=== PATIENT | female | born 1955 | race Two or more races ===

== ENCOUNTER 2020-10-20 07:18 | Day surgery (SDC) | payer OTHER | END 2020-10-20 13:50 | disposition home or self-care (01) | LOC: AMB-ENDOS 07:18 | PROVIDERS: ATTEND Colon & Rectal Surgery | DX: K57.32 Diverticulitis of large intestine without perforation or abscess without bleeding (principal); K64.1 Second degree hemorrhoids; Z20.822 Contact with and (suspected) exposure to COVID-19 ==

== ENCOUNTER 2020-11-21 10:45 | Inpatient (IN) | payer OTHER ==
[~2020-11-21] VITALS: Ht 157.5 cm; Wt 108.9 kg
[2020-11-21] MEDS ORDERED: PRILOSEC OTC20 MG PO (12:29)
[2020-11-21] MEDS ORDERED: TENORMIN25 MG PO (12:29)
[2020-11-21] MEDS ORDERED: PROZAC40 MG PO (12:29)
[2020-11-21] MEDS ORDERED: ADULT LOW DOSE81 M1 PO (12:29)
[2020-11-21] MEDS ORDERED: PEPCID AC20 MG PO (12:30)
[2020-11-21] MEDS ORDERED: SENNA8.8 MG/5 M PO (12:31)
[2020-11-21] MEDS ORDERED: MONTELUKAST SOD10 MG PO (12:31)
[2020-11-21] MEDS ORDERED: MILLIPRED DP5 MG PO (12:32)
[2020-11-21] MEDS ORDERED: ADVAIR 100-501 EACH IH (12:32)
[2020-11-21] MEDS ORDERED: FLONASE16 GM (12:33)
[2020-11-21] MEDS ORDERED: CLONAZEPAM0.5 MG PO (12:34)
[2020-11-21] MEDS ORDERED: RESTORIL22.5 MG PO (12:34)
[2020-12-15] MEDS ORDERED: POLY119PG PO (17:06)
[2020-12-15] MEDS ORDERED: TRAMADOL HCL50 MG PO (17:06)
== END 2020-12-15 20:11 | disposition home or self-care (01) | DRG 329 ==
LOC: SURH 11-28 10:45 → O/R 11-29 06:58 → SURH 11-29 19:49
PROVIDERS: ADMIT Colon & Rectal Surgery; ATTEND Colon & Rectal Surgery
PROC: 0DBP0ZZ Excision of Rectum, Open Approach (ICD-10-PCS; 2020-11-29)
PROC: 0DNW0ZZ Release Peritoneum, Open Approach (ICD-10-PCS; 2020-11-29)
PROC: 0DB80ZZ Excision of Small Intestine, Open Approach (ICD-10-PCS; principal; 2020-11-29 10:00)
PROC: 02HV33Z Insertion of Infusion Device into Superior Vena Cava, Percutaneous Approach (ICD-10-PCS; 2020-12-03)
DX: Z43.3 Encounter for attention to colostomy (principal); J18.9 Pneumonia, unspecified organism; J45.901 Unspecified asthma with (acute) exacerbation; K57.30 Diverticulosis of large intestine without perforation or abscess without bleeding; K66.0 Peritoneal adhesions (postprocedural) (postinfection)
CPT/HCPCS: 71275

== ENCOUNTER 2022-05-16 06:50 | Outpatient (CLI) | payer OTHER ==
[~2022-05-16 06:50] MED LIST: ADULT LOW DOSE81 M1 PO; ADVAIR 100-501 EACH IH; CLONAZEPAM0.5 MG PO; FLONASE16 GM; MILLIPRED DP5 MG PO; MONTELUKAST SOD10 MG PO; PEPCID AC20 MG PO; POLY119PG PO; PRILOSEC OTC20 MG PO; PROZAC40 MG PO; RESTORIL22.5 MG PO; SENNA8.8 MG/5 M PO; TENORMIN25 MG PO; TRAMADOL HCL50 MG PO
== END 2022-05-16 06:52 | disposition home or self-care (01) ==
LOC: LAB 06:50
PROVIDERS: ATTEND Orthopaedic Surgery
DX: D64.89 Other specified anemias (principal); M06.4 Inflammatory polyarthropathy; E55.9 Vitamin D deficiency, unspecified; M85.9 Disorder of bone density and structure, unspecified; E56.1 Deficiency of vitamin K; E21.3 Hyperparathyroidism, unspecified; E88.89 Other specified metabolic disorders; M81.8 Other osteoporosis without current pathological fracture

== ENCOUNTER 2022-05-16 07:36 | Outpatient (CLI) | payer OTHER | END 2022-05-16 07:47 | disposition home or self-care (01) | LOC: RAD 07:36 | PROVIDERS: ATTEND Orthopaedic Surgery | DX: M54.59 Other low back pain (principal); M25.571 Pain in right ankle and joints of right foot; M79.671 Pain in right foot ==

== ENCOUNTER → 2022-07-18 07:32 | Outpatient (CLI) | payer OTHER | END | disposition home or self-care (01) | LOC: LAB 07:32 | PROVIDERS: ATTEND Orthopaedic Surgery | DX: M85.9 Disorder of bone density and structure, unspecified (principal); E83.42 Hypomagnesemia; E56.1 Deficiency of vitamin K; E88.89 Other specified metabolic disorders; M81.8 Other osteoporosis without current pathological fracture ==

== ENCOUNTER 2022-08-01 12:49 | Outpatient (CLI) | payer OTHER | END 2022-08-01 12:50 | disposition home or self-care (01) | LOC: NUCLEAR 12:49 | PROVIDERS: ATTEND Orthopaedic Surgery | DX: M81.0 Age-related osteoporosis without current pathological fracture (principal) ==

== ENCOUNTER 2022-09-13 06:16 | Outpatient (CLI) | payer OTHER | END 2022-09-13 06:17 | disposition home or self-care (01) | LOC: LAB 06:16 | PROVIDERS: ATTEND Orthopaedic Surgery | DX: D64.89 Other specified anemias (principal); E88.89 Other specified metabolic disorders; D68.8 Other specified coagulation defects; N39.0 Urinary tract infection, site not specified; E11.9 Type 2 diabetes mellitus without complications; Z22.322 Carrier or suspected carrier of Methicillin resistant Staphylococcus aureus; I49.9 Cardiac arrhythmia, unspecified; I10 Essential (primary) hypertension; Z76.89 Persons encountering health services in other specified circumstances ==

== ENCOUNTER 2022-09-26 14:45 | Inpatient (IN) | payer OTHER ==
[~2022-09-26] VITALS: Ht 157.5 cm; Wt 102.1 kg
[2022-10-01] MEDS ORDERED: AZATHIOPRINE50 MG (08:01)
[2022-10-01] MEDS ORDERED: ARNUITY ELLIP100 MCG (08:01)
[2022-10-01] MEDS ORDERED: AMITRIPTYLINE100 MG (08:01)
[2022-10-01] MEDS ORDERED: FLONASE16 GM (08:02)
[2022-10-01] MEDS ORDERED: OMEPRAZOLE40 MG (08:02)
[2022-10-01] MEDS ORDERED: METHOTREXATE2.5 MG (08:02)
[2022-10-01] MEDS ORDERED: DESVENLAFAXINE50 M3 (08:02)
[2022-10-01] MEDS ORDERED: FOLIC ACID1 MG (08:02)
[2022-10-01] MEDS ORDERED: GABAPENTIN800 M1 (08:02)
[2022-10-01] MEDS ORDERED: PRISTIQ ER50 MG (08:23)
[2022-10-03] MEDS ORDERED: BACTRIM DS TAB1 EACH PO (15:28)
== END 2022-10-03 15:43 | DRG 494 ==
LOC: SURG 09-30 11:45 → O/R 10-01 05:32 → SURG 10-01 05:32
PROVIDERS: ADMIT Orthopaedic Surgery; ATTEND Orthopaedic Surgery
PROC: 0SGF07Z Fusion of Right Ankle Joint with Autologous Tissue Substitute, Open Approach (ICD-10-PCS; 2022-10-01)
PROC: 0LBS0ZZ Excision of Right Ankle Tendon, Open Approach (ICD-10-PCS; 2022-10-01)
PROC: 0QPG04Z Removal of Internal Fixation Device from Right Tibia, Open Approach (ICD-10-PCS; 2022-10-01)
PROC: 0SGF04Z Fusion of Right Ankle Joint with Internal Fixation Device, Open Approach (ICD-10-PCS; principal; 2022-10-01 07:15)
DX: T84.84XA Pain due to internal orthopedic prosthetic devices, implants and grafts, initial encounter (principal); M19.171 Post-traumatic osteoarthritis, right ankle and foot; M65.871 Other synovitis and tenosynovitis, right ankle and foot

== ENCOUNTER 2022-10-17 11:14 | Outpatient (CLI) | payer OTHER ==
[~2022-10-17 11:14] MED LIST changes: +AMITRIPTYLINE100 MG; +ARNUITY ELLIP100 MCG; +AZATHIOPRINE50 MG; +BACTRIM DS TAB1 EACH PO; +DESVENLAFAXINE50 M3; +FOLIC ACID1 MG; +GABAPENTIN800 M1; +METHOTREXATE2.5 MG; +OMEPRAZOLE40 MG; +PRISTIQ ER50 MG
== END 2022-10-17 11:19 | disposition home or self-care (01) ==
LOC: RAD 11:14
PROVIDERS: ATTEND Orthopaedic Surgery
DX: M25.561 Pain in right knee (principal); M25.562 Pain in left knee

== ENCOUNTER 2022-10-30 15:17 | Inpatient (IN) | payer OTHER ==
[~2022-10-30] VITALS: Ht 157.5 cm; Wt 102.1 kg
--- NOTE | 2022-10-30 15:29 | NUR ---
PTE ALERTA Y ORIENTADA X3, EN [place]. REFIERE VENIR POR REFERIDO MEDICO DEL DR. MARY ROCA. POR CELLULITIS/INFECCION DEBIDO A OPERACION EN TOBILLO DERECHO. SE LSIA SV Y SE UBICA.
== END 2022-11-07 22:23 | disposition home or self-care (01) | DRG 857 ==
LOC: ER 15:17 → MEDJ 17:44
PROVIDERS: General Practice; Internal Medicine Infectious Disease; Orthopaedic Surgery; ADMIT Specialist; ATTEND Specialist
PROC: 0SBG0ZZ Excision of Left Ankle Joint, Open Approach (ICD-10-PCS; 2022-11-01)
PROC: 3E10X8Z Irrigation of Skin and Mucous Membranes using Irrigating Substance (ICD-10-PCS; 2022-11-01)
PROC: 0JBP0ZZ Excision of Left Lower Leg Subcutaneous Tissue and Fascia, Open Approach (ICD-10-PCS; principal; 2022-11-01 07:00)
PROC: 02HV33Z Insertion of Infusion Device into Superior Vena Cava, Percutaneous Approach (ICD-10-PCS; 2022-11-02)
DX: T81.49XA Infection following a procedure, other surgical site, initial encounter (principal); L03.116 Cellulitis of left lower limb; L08.89 Other specified local infections of the skin and subcutaneous tissue; I10 Essential (primary) hypertension; M79.7 Fibromyalgia; M65.872 Other synovitis and tenosynovitis, left ankle and foot

== ENCOUNTER 2022-11-13 09:51 | Emergency (ER) | payer OTHER ==
[~2022-11-13] VITALS: Ht 157.5 cm; Wt 102.1 kg
== END 2022-11-13 12:58 | disposition home or self-care (01) ==
LOC: ER 09:51
DX: T82.534A Leakage of infusion catheter, initial encounter (principal); I10 Essential (primary) hypertension; Z88.6 Allergy status to analgesic agent; Z88.8 Allergy status to other drugs, medicaments and biological substances; Z88.2 Allergy status to sulfonamides
CPT/HCPCS: 36569; 71045; 71046; 96365; 99284; J0696